=== PATIENT | male | born 1945 | race Caucasian/White ===

== ENCOUNTER → 2017-07-09 | Outpatient (CLI) | payer MEDICARE ==
[~2017-07-09] MED LIST: BUPR150ER PO; CITA20 PO; METTREX2.5 PO; Norvasc2.5 MG PO; RAMI5 PO
== END ==
LOC: LAB SHORT 13:25 → PLD 13:25
DX: D48.5 Neoplasm of uncertain behavior of skin (principal)
CPT/HCPCS: 88305

== ENCOUNTER → 2017-08-19 | Outpatient (CLI) | payer MEDICARE | LOC: PLD 13:34 → LAB SHORT 13:34 | DX: C44.722 Squamous cell carcinoma of skin of right lower limb, including hip (principal); D04.72 Carcinoma in situ of skin of left lower limb, including hip | CPT/HCPCS: 88305; 88312 ==

== ENCOUNTER → 2017-09-18 | Outpatient (CLI) | payer MEDICARE | END | disposition home or self-care (01) | LOC: PLD 14:51 → LAB SHORT 14:51 | DX: C44.729 Squamous cell carcinoma of skin of left lower limb, including hip (principal); C44.622 Squamous cell carcinoma of skin of right upper limb, including shoulder; D04.61 Carcinoma in situ of skin of right upper limb, including shoulder | CPT/HCPCS: 88305 ==

== ENCOUNTER → 2017-12-09 | Outpatient (CLI) | payer MEDICARE | END | disposition home or self-care (01) | LOC: PLD 07:52 → LAB SHORT 07:52 | DX: D48.5 Neoplasm of uncertain behavior of skin (principal) | CPT/HCPCS: 88305 ==

== ENCOUNTER → 2018-08-13 | Outpatient (CLI) | payer MEDICARE | END | disposition home or self-care (01) | LOC: PLD 14:30 → LAB SHORT 14:30 | DX: L57.0 Actinic keratosis (principal); D04.62 Carcinoma in situ of skin of left upper limb, including shoulder; C44.722 Squamous cell carcinoma of skin of right lower limb, including hip; L90.5 Scar conditions and fibrosis of skin | CPT/HCPCS: 88305 ==

== ENCOUNTER → 2018-09-15 | Outpatient (CLI) | payer MEDICARE | END | disposition home or self-care (01) | LOC: LAB SHORT 15:11 → LAB 15:11 | DX: D48.5 Neoplasm of uncertain behavior of skin (principal) | CPT/HCPCS: 88305 ==

== ENCOUNTER → 2018-10-14 | Outpatient (CLI) | payer MEDICARE | LOC: LAB SHORT 14:16 → PLD 14:16 | DX: D48.5 Neoplasm of uncertain behavior of skin (principal) | CPT/HCPCS: 88305 ==

== ENCOUNTER → 2018-10-29 | Outpatient (CLI) | payer MEDICARE | END | disposition home or self-care (01) | LOC: LAB SHORT 14:00 → PLD 14:00 | DX: R21 Rash and other nonspecific skin eruption (principal) | CPT/HCPCS: 88305 ==